=== PATIENT | male | born 1995 | race Two or more races ===

== ENCOUNTER 2020-01-24 21:06 | Emergency (ER) | payer MEDICAID ==
[~2020-01-24] VITALS: Ht 167.6 cm; Wt 59.1 kg
[2020-01-24] MEDS ORDERED: CYCL10TA2 PO (21:56)
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
[2020-01-25 00:27] VITALS: BP 128/76
== END 2020-01-24 22:35 | disposition home or self-care (01) ==
LOC: ER 21:06
DX: M79.18 Myalgia, other site (principal); M79.652 Pain in left thigh; R25.2 Cramp and spasm
CPT/HCPCS: 99283

== ENCOUNTER 2020-07-06 19:26 | Emergency (ER) | payer MEDICAID ==
[~2020-07-06] VITALS: Ht 170.2 cm; Wt 68.0 kg
[~2020-07-06 19:26] MED LIST: CYCL10TA2 PO
[2020-07-06] MEDS ORDERED: NAPR-695 PO (21:03)
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
[2020-07-06 21:09] VITALS: BP 135/65
== END 2020-07-06 21:10 | disposition home or self-care (01) ==
LOC: ER 19:26
DX: G89.29 Other chronic pain (principal); M25.552 Pain in left hip; F41.9 Anxiety disorder, unspecified; Z98.890 Other specified postprocedural states
CPT/HCPCS: 99282

== ENCOUNTER 2021-09-11 20:53 | Emergency (ER) | payer MEDICAID ==
[~2021-09-11] VITALS: Ht 170.2 cm; Wt 68.1 kg
[~2021-09-11 20:53] MED LIST changes: +CYCL10TA19 PO; -CYCL10TA2 PO; +NAPR-695 PO
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
[2021-09-11] MEDS ORDERED: IBUPROFEN 200 MG TABLET. PO ONE (22:45)
[2021-09-11 23:00] VITALS: BP 103/72
--- NOTE | 2021-09-11 23:39 | RAD ---
Exam: Left hip 2 views with pelvis INDICATION: Hip pain, previous surgery TECHNIQUE: Frontal view of pelvis with frontal and frog-leg lateral views of the left hip Comparisons: 08/28/2021 FINDINGS: Partially visualized intramedullary angelika at the left femoral diaphysis with dynamic hip screw. There i s persistent extensive heterotopic ossification involving the intertrochanteric region and proximal f emoral diaphysis. No acute fractures seen. Soft tissues are unremarkable. Joint spaces are well-maint ained. IMPRESSION: Chronic appearance of the left hip postoperative changes without underlying osseous abnormality ident ified. Electronically signed by: Guerrero Austin MD (09/11/2021 11:36 PM) YOLANDA
== END 2021-09-11 23:23 | disposition home or self-care (01) ==
LOC: ER 20:53
DX: M25.552 Pain in left hip (principal); M79.652 Pain in left thigh; G89.11 Acute pain due to trauma; V49.49XA Driver injured in collision with other motor vehicles in traffic accident, initial encounter; Y93.89 Activity, other specified; Y92.488 Other paved roadways as the place of occurrence of the external cause; Y99.8 Other external cause status
CPT/HCPCS: 73502; 99283